=== PATIENT | female | born 1980 | race Caucasian/White ===

== ENCOUNTER → 2021-04-28 | Outpatient (CLI) | payer OTHER ==
[~2021-04-28] MED LIST: LEVAQUIN 250MG250 MG PO; MACROBID 1100 MG/CAP PO; NO HOME MEDICATIONS; PYRIDIUM 100MG100 MG PO; PYRIDIUM200 M1 PO
== END ==
LOC: MC.RAD 08:30
DX: Z12.31 Encounter for screening mammogram for malignant neoplasm of breast (principal)